=== PATIENT | female | born 1945 | race American Indian/Alaskan Native ===

== ENCOUNTER 2019-05-10 11:45 | Day surgery (SDC) | payer MEDICARE, OTHER ==
[~2019-05-10 11:45] MED LIST: APRACLONIDINE 1% OPHTH SOLN DROPERETTE ONE; APRACLONIDINE 1% OPHTH SOLN DROPERETTE OS ONE; PHENYLEPHRINE 10% OPHTH SOLN 5 ML ONE; PHENYLEPHRINE 10% OPHTH SOLN 5 ML OS ONE; TROPICAMIDE 1% OPHTH SOLN 3 ML ONE; TROPICAMIDE 1% OPHTH SOLN 3 ML OS ONE
[2019-05-10 12:41] VITALS: BP 136/53
== END 2019-05-10 11:46 | disposition home or self-care (01) ==
LOC: OR 11:45
PROVIDERS: ATTEND Specialist
DX: E11.36 Type 2 diabetes mellitus with diabetic cataract (principal); H26.492 Other secondary cataract, left eye; E78.00 Pure hypercholesterolemia, unspecified; I10 Essential (primary) hypertension; K21.9 Gastro-esophageal reflux disease without esophagitis; Z87.891 Personal history of nicotine dependence; Z88.0 Allergy status to penicillin; Z98.49 Cataract extraction status, unspecified eye; Z98.890 Other specified postprocedural states; Z86.2 Personal history of diseases of the blood and blood-forming organs and certain disorders involving the immune mechanism
CPT/HCPCS: 82962